=== PATIENT | male | born 1960 | race Caucasian/White ===

== ENCOUNTER → 2021-12-15 | Outpatient (CLI) | payer OTHER ==
[2021-12-15 13:26] LABS: BLOOD UREA NITROGEN 11 MG/DL (7-18); CALCIUM LEVEL 9.1 MG/DL (8.5-10.1); CARBON DIOXIDE LEVEL 31 MEQ/L (21-32); CHLORIDE LEVEL 98 MEQ/L (98-107); CREATININE FOR GFR 0.73 MG/DL (0.70-1.30); GLOMERULAR FILTRATION RATE > 60.0 (>56); GLUCOSE, FASTING 105 MG/DL (70-100); SODIUM LEVEL 136 MEQ/L (136-145)
== END ==
LOC: M ADAMS 11:13
PROVIDERS: ATTEND Nurse Practitioner Family
DX: R60.1 Generalized edema (principal); K70.30 Alcoholic cirrhosis of liver without ascites